=== PATIENT | female | born 1965 | race African-American/Black ===

== ENCOUNTER 2016-11-17 09:59 | Emergency (ER) | payer MEDICARE, OTHER, MEDICAID ==
[2016-11-17 10:08] VITALS: BP 177/113
== END 2016-11-17 11:10 | disposition left against medical advice (07) ==
LOC: ER 09:59
DX: Z53.21 Procedure and treatment not carried out due to patient leaving prior to being seen by health care provider (principal)

== ENCOUNTER → 2019-11-09 | Outpatient (CLI) | payer MEDICARE, MEDICAID ==
--- NOTE | 2019-11-09 13:46 | RADIOLOGY REPORT (SQ) ---
EXAM DESCRIPTION: FOOT BILATERAL 3 VIEWS COMPLETED DATE/TIME: 11/09/2019 1:34 pm REASON FOR STUDY: M79.671 PAIN IN RIGHT FOOT, M79.672 PAIN IN LEFT FOOT M25.572 PAIN IN LEFT ANKLE AND JOINTS OF LEFT FOOT M25.571 PAIN IN RIGHT ANKLE AND JOINTS OF RIGHT FOOT M79.671 PAIN IN RIGHT FOOT COMPARISON: None. NUMBER OF VIEWS: Three views. TECHNIQUE: AP, lateral, and oblique views of both feet were obtained. LIMITATIONS: None. FINDINGS: RIGHT FOOT: MINERALIZATION: Normal. BONES: No fracture or osseous lesion. JOINTS: Osteoarthrosis of the 1st MTP joint. The normal tarsometatarsal alignment is preserved. SOFT TISSUES: No soft tissue swelling or radiopaque foreign body. OTHER: No other finding. LEFT FOOT: MINERALIZATION: Normal. BONES: No fracture or osseous lesion. JOINTS: Osteoarthrosis of the 1st MTP joint. The normal tarsometatarsal alignment is preserved. SOFT TISSUES: No soft tissue swelling or radiopaque foreign body. OTHER: No other finding. IMPRESSION: 1. No acute osseous abnormality of the feet. 2. 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 TECHNICAL DOCUMENTATION: JOB ID: [id number] [employer]- All Rights Reserved Reading location - IP/workstation name: [email or web address]
--- NOTE | 2019-11-09 16:08 | RADIOLOGY REPORT (SQ) ---
EXAM DESCRIPTION: ANKLE BILATERAL 3 VIEWS MIN COMPLETED DATE/TIME: 11/09/2019 12:38 pm REASON FOR STUDY: M25.572 PAIN IN LEFT ANKLE AND JOINTS OF LEFT FOOT, M25.571 PAIN IN RIGHT A M79.60 5 PAIN IN LEFT LEG M25.572 PAIN IN LEFT ANKLE AND JOINTS OF LEFT FOOT M25.571 PAIN IN RIGHT ANKLE AND JOINTS OF RIGHT FOOT COMPARISON: None. NUMBER OF VIEWS: Three views. TECHNIQUE: AP, lateral, and oblique radiographic images acquired of the right and left ankle. LIMITATIONS: None. FINDINGS: MINERALIZATION: Normal. BONES: No acute fracture or dislocation. No worrisome bone lesions. JOINTS: No effusions. SOFT TISSUES: No soft tissue swelling. No foreign body. OTHER: No other significant finding. IMPRESSION: NO RADIOGRAPHIC EVIDENCE OF ACUTE INJURY OF THE RIGHT AND LEFT ANKLES. TECHNICAL DOCUMENTATION: JOB ID: [id number] [employer]- All Rights Reserved Reading location - IP/workstation name: [email or web address]
== END ==
LOC: RAD 12:01
PROVIDERS: ATTEND Internal Medicine
DX: M79.671 Pain in right foot (principal); M79.672 Pain in left foot; M25.572 Pain in left ankle and joints of left foot; M25.571 Pain in right ankle and joints of right foot

== ENCOUNTER → 2019-12-06 | Outpatient (CLI) | payer MEDICARE, MEDICAID ==
--- NOTE | 2019-12-06 10:19 | WOMENS IMAGING REPORT ---
EXAM DESCRIPTION: 3D SCREENING MAMMO BILAT COMPLETED DATE/TIME: 12/06/2019 9:30 am REASON FOR STUDY: Z12.31 ENCOUNTER FOR SCREENING MAMMOGRAM FOR MALIGNANT NEOPLASM OF BREAST Z12.31 ENCNTR SCREEN MAMMOGRAM FOR MALIGNANT NEOPLASM OF [place] COMPARISON: 10/20/2009. EXAM PARAMETERS: Views: Standard craniocaudal and mediolateral oblique views of each breast recorded using digital acquisition and breast tomosynthesis. Read with the assistance of CAD. .[facility] - R2 [place] Guide Version 9.2 LIMITATIONS: None. FINDINGS: No suspicious masses, suspicious calcifications or architectural distortion. No areas of c oncern. IMPRESSION: NEGATIVE MAMMOGRAM. BIRADS 1. BREAST DENSITY: c. The breasts are heterogeneously dense, which may obscure small masses. BIRAD: ASSESSMENT: 1 NEGATIVE RECOMMENDATION: ROUTINE SCREENING COMMENT: The patient has been notified of the results by letter per MQSA requirements. Additional no tification policies are in place for contacting patient with suspicious or incomplete findings. Quality ID #[id number]: The [employer] recommends an annual screening mammogram for women aged 40 years or over. This facility utilizes a reminder system to ensure that all patients receive reminder letters, and/or direct phone calls for appointments. This includes reminders for routine scr eening mammograms, diagnostic mammograms, or other Breast Imaging Interventions when appropriate. Th is patient will be placed in the appropriate reminder system. TECHNICAL DOCUMENTATION: FINDING NUMBER: (1) ASSESSMENT: (1) JOB ID: [id number] [employer]- All Rights Reserved Reading location - IP/workstation name: [email or web address]
== END ==
LOC: WI 08:13
PROVIDERS: ATTEND Internal Medicine
DX: Z12.31 Encounter for screening mammogram for malignant neoplasm of breast (principal)
CPT/HCPCS: 77063; 77067

== ENCOUNTER 2020-01-13 12:10 | Emergency (ER) | payer MEDICAID, MEDICARE ==
[2020-01-13 12:22] VITALS: BP 166/98
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
== END 2020-01-13 12:28 | disposition home or self-care (01) ==
LOC: ER 12:10
DX: I10 Essential (primary) hypertension (principal); J45.909 Unspecified asthma, uncomplicated; Z79.899 Other long term (current) drug therapy
CPT/HCPCS: 99283

== ENCOUNTER 2020-04-02 21:20 | Emergency (ER) | payer MEDICARE ==
[2020-04-02 21:28] VITALS: BP 133/85
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
== END 2020-04-02 23:05 | disposition left against medical advice (07) ==
LOC: ER 21:20
DX: M54.5 Low back pain (principal); R10.9 Unspecified abdominal pain; R31.9 Hematuria, unspecified; R04.2 Hemoptysis; Z53.20 Procedure and treatment not carried out because of patient's decision for unspecified reasons; I10 Essential (primary) hypertension; J45.909 Unspecified asthma, uncomplicated
CPT/HCPCS: 72110; 99281

== ENCOUNTER 2020-06-17 11:20 | Emergency (ER) | payer MEDICARE ==
--- NOTE | 2020-06-17 11:36 | ER Document Report ---
HPI - HPI Time Seen by Provider: 06/17/20 11:29 Notes: 55-year-old female with a history of hypertension and hypothyroidism presents to the emergency room for evaluation of elevated blood pressure this morning. Patient did not take her blood pressure medication this morning which is losartan and carvedilol, she then had a reading of 181/121 and came to the emergency room for high blood pressure. When asked why she did not take her blood pressure medication she said that her mother did not give them to her, but she is not sure why her blood pressure is high. MEDICATIONS: I agree with the patient medications as charted by the RN. ALLERGIES: I agree with the allergies as charted by the RN. PAST MEDICAL HISTORY/PAST SURGICAL HISTORY: Reviewed and agree as charted by RN. SOCIAL HISTORY: Reviewed and agree as charted by RN. FAMILY HISTORY: No significant familial comorbid conditions directly related to patient complaint EXAM: Reviewed vital signs as charted by RN. REVIEW OF SYSTEMS:reviewed vital signs by RN CONSTITUTIONAL : Denies fever, chills, or sweats. Denies recent illness. EENT: Denies eye, ear, throat, or mouth pain or symptoms. Denies nasal or sinus congestion or discharge. Denies throat, tongue, or mouth swelling or difficulty swallowing. CARDIOVASCULAR: Denies chest pain. Denies palpitations or racing or irregular heart beat. Denies ankle edema. RESPIRATORY: Denies cough, cold, or chest congestion. Denies shortness of breath, difficulty breathing, or wheezing. GASTROINTESTINAL: Denies abdominal pain or distention. Denies nausea, vomiting, or diarrhea. Denies blood in vomitus, stools, or per rectum. Denies black, tarry stools. Denies constipation. GENITOURINARY: Denies difficulty urinating, painful urination, burning, frequency, blood in urine, or discharge. FEMALE GENITOURINARY: Denies vaginal bleeding, heavy or abnormal periods, irregular periods. Denies vaginal discharge or odor. MUSCULOSKELETAL: Denies back or neck pain or stiffness. Denies joint pain or swelling. SKIN: Denies rash, lesions or sores. HEMATOLOGIC : Denies easy bruising or bleeding. LYMPHATIC: Denies swollen, enlarged glands. NEUROLOGICAL: Denies confusion or altered mental status. Denies passing out or loss of consciousness. Denies dizziness or lightheadedness. Denies headache. Denies weakness or paralysis or loss of use of either side. Denies problems with gait or speech. Denies sensory loss, numbness, or tingling. Denies sei zures. PSYCHIATRIC: Denies anxiety or stress. Denies depression, suicidal ideation, or homicidal ideation. ALL OTHER SYSTEMS REVIEWED AND NEGATIVE. PHYSICAL EXAMINATION: GENERAL: Well-appearing, well-nourished and in no acute distress. HEAD: Atraumatic, normocephalic. EYES: Pupils equal round and reactive to light, extraocular movements intact, conjunctiva are normal. ENT: Nares patent, oropharynx clear without exudates. Moist mucous membranes. NECK: Normal range of motion, supple without lymphadenopathy LUNGS: Breath sounds clear to auscultation bilaterally and equal. No wheezes rales or rhonchi. HEART: Regular rate and rhythm without murmurs ABDOMEN: Soft, nontender, nondistended abdomen. No guarding, no rebound. No masses appreciated. Female : deferred Musculoskeletal: Normal range of motion, no pitting or edema. No cyanosis. NEUROLOGICAL: Cranial nerves grossly intact. Normal speech, normal gait. Normal sensory, motor exams PSYCH: Normal mood, normal affect. SKIN: Warm, Dry, normal turgor, no rashes or lesions noted. Dictation was performed using [employer] voice recognition software - REPRODUCTIVE Reproductive: DENIES: : Past Medical History - General Information source: Patient - Social History Family History: Reviewed & Not Pertinent - Past Medical History Cardiac Medical History: Reports: Hx Hypertension Pulmonary Medical History: Reports: Hx Asthma Endocrine Medical History: Reports: Hx Hypothyroidism Renal/ Medical History: Reports: Hx Ovarian Cysts Psychiatric Medical History: Reports: Hx Bipolar Disorder, Hx Depression, Hx Schizophrenia Past Surgical History: Reports: Hx Appendectomy, Hx Gynecologic Surgery - Left ovarian cyst, Hx Thyroid Surgery - Immunizations Hx Diphtheria, Pertussis, Tetanus Vaccination: No Vertical Provider Document - CONSTITUTIONAL Agree With Documented VS: Yes Exam Limitations: No Limitations General Appearance: WD/WN - INFECTION CONTROL TRAVEL OUTSIDE OF THE [place] IN LAST 30 DAYS: No Course - Re-evaluation Re-evalutation: 06/17/20 11:35 Patient is hypertensive but did not take her blood pressure medication today. When asked why she did not take her blood pressure medication she states that her mother did not dispense it to her which is the losartan 50 mg and the carvedilol 25 mg tablets that she takes in the morning. Patient came to the emergency room hypertensive without any symptoms. Patient states she is not sure why her blood pressure is elevated. When asked her if she took her blood pressure medication she said no, when asked her if this is why her blood pressure could be elevated she said yes. So we will be giving patient her prescribed blood pressure medication to see if her blood pressure does reduce - Vital Signs Vital signs: Temp Pulse Resp BP Pulse Ox 98.4 F 74 14 181/121 H 100 06/17/20 11:26 06/17/20 11:26 06/17/20 11:26 06/17/20 11:26 06/17/20 11:26 Discharge - Discharge Clinical Impression: Hypertension Condition: Stable Instructions: High Blood Pressure ([facility]) Additional Instructions: Please take your blood pressure medication as prescribed to you in the morning, every morning, as directed to keep your blood pressure stable. Referrals: LATANYA FARNSWORTH MD [Primary Care Provider] - Follow up as needed
--- NOTE | 2020-06-17 13:07 | ER Document Report ---
ED Medical Screen (RME) - General Chief Complaint: High Blood Pressure Stated Complaint: HIGH BLOOD PRESSURE Time Seen by Provider: 06/17/20 11:29 Primary Care Provider: LATANYA FARNSWORTH MD [Primary Care Provider] - Follow up as needed TRAVEL OUTSIDE OF THE [place] IN LAST 30 DAYS: No - HPI Notes: 06/17/20 13:06 55-year-old female presents to the emergency room for evaluation of hypertension. Patient states that she typically takes losartan 50 mg and carvedilol 25 mg tablets in the morning but did not take any this morning. Patient states that her mother typically gives her her blood pressure medication but she did not give it to her this morning. Patient states her blood pressure typically has been higher than usual and she thinks that she may need a blood pressure medication adjustment. Typically her blood pressures in the 130s over 80s with medication. Denies any blurred vision double vision loss of vision, headache, numbness or tingling down bilateral arms or legs or face, chest pain, shortness of breath, dizziness, lightheadedness, etc I have greeted and performed a rapid initial assessment of this patient. A comprehensive ED assessment and evaluation of the patient, analysis of test results and completion of the medical decision making process will be conducted by additional ED providers. PHYSICAL EXAMINATION: GENERAL: Well-appearing, well-nourished and in no acute distress. HEAD: Atraumatic, normocephalic. EYES: Pupils equal round extraocular movements intact, conjunctiva are normal. NECK: Normal range of motion CV: s1, s2 regular LUNGS: No respiratory distress Musculoskeletal: Normal range of motion NEUROLOGICAL: Normal speech, normal gait. SKIN: Warm, Dry, normal turgor, no rashes or lesions noted. - Related Data Allergies/Adverse Reactions: No Known Allergies Allergy (Verified 11/17/16 10:02) Home Medications: Losartan, Carvedilol, Synthroid Past Medical History - Social History Family history: Reviewed & Not Pertinent - Past Medical History Cardiac Medical History: Reports: Hx Hypertension Pulmonary Medical History: Reports: Hx Asthma Endocrine Medical History: Reports: Hx Hypothyroidism Renal/ Medical History: Reports: Hx Ovarian Cysts Psychiatric Medical History: Reports: Hx Bipolar Disorder, Hx Depression, Hx Schizophrenia Past Surgical History: Reports: Hx Appendectomy, Hx Gynecologic Surgery - Left ovarian cyst, Hx Thyroid Surgery - Immunizations Hx Diphtheria, Pertussis, Tetanus Vaccination: No Physical Exam - Vital signs Vitals: Temp Pulse Resp BP Pulse Ox 98.4 F 74 14 181/121 H 100 06/17/20 11:26 06/17/20 11:26 06/17/20 11:26 06/17/20 11:26 06/17/20 11:26 Course - Vital Signs Vital signs: Temp Pulse Resp BP Pulse Ox 98.4 F 74 14 171/100 H 100 06/17/20 11:26 06/17/20 11:26 06/17/20 11:26 06/17/20 12:50 06/17/20 11:26 Doctor's Discharge - Discharge
--- NOTE | 2020-06-17 14:06 | ER Document Report ---
ED General - General Chief Complaint: High Blood Pressure Stated Complaint: HIGH BLOOD PRESSURE Time Seen by Provider: 06/17/20 11:29 Primary Care Provider: LATANYA FARNSWORTH MD [Primary Care Provider] - Follow up as needed Notes: Patient presents with "my blood pressures been up and down." When I asked her what how high it got she said "100 and something." Her mom has her med she is not sure what she is on but denies medication changes. She also denies any symptoms at all including cardiac or neurologic. TRAVEL OUTSIDE OF THE [place] IN LAST 30 DAYS: No - Related Data Allergies/Adverse Reactions: No Known Allergies Allergy (Verified 11/17/16 10:02) Home Medications: Losartan, Carvedilol, Synthroid Past Medical History - General Information source: Patient - Social History Smoking Status: Unknown if Ever Smoked Family History: Reviewed & Not Pertinent - Past Medical History Cardiac Medical History: Reports: Hx Hypertension Pulmonary Medical History: Reports: Hx Asthma Endocrine Medical History: Reports: Hx Hypothyroidism Renal/ Medical History: Reports: Hx Ovarian Cysts Psychiatric Medical History: Reports: Hx Bipolar Disorder, Hx Depression, Hx Schizophrenia Past Surgical History: Reports: Hx Appendectomy, Hx Gynecologic Surgery - Left ovarian cyst, Hx Thyroid Surgery - Immunizations Hx Diphtheria, Pertussis, Tetanus Vaccination: No Review of Systems - Review of Systems Notes: Insert my review Physical Exam - Vital signs Vitals: Temp Pulse Resp BP Pulse Ox 98.4 F 74 14 181/121 H 100 06/17/20 11:26 06/17/20 11:26 06/17/20 11:26 06/17/20 11:26 06/17/20 11:26 Course - Re-evaluation Re-evalutation: 06/17/20 14:45 Asymptomatic hypertension No signs of stroke and hypertensive emergency. Not truly hypertensive at home. Stable for discharge. Titrate meds at primary care. I have discussed with the patient there likely diagnosis, aftercare plan, follow-up plans and my usual and customary return precautions. They verbalized understanding of this. - Vital Signs Vital signs: Temp Pulse Resp BP Pulse Ox 98.4 F 67 18 163/107 H 100 06/17/20 14:13 06/17/20 14:13 06/17/20 14:13 06/17/20 14:13 08/25/20 11:26 Discharge - Discharge Clinical Impression: Asymptomatic hypertension Condition: Good Disposition: HOME, SELF-CARE Referrals: LATANYA FARNSWORTH MD [Primary Care Provider] - Follow up as needed
[2020-06-17 14:14] VITALS: BP 163/107
--- NOTE | 2020-06-18 10:28 | EKG REPORT ---
SEVERITY:- NORMAL ECG - SINUS RHYTHM : Confirmed by: Chana Duong MD 18-Jun-2020 10:27:44
== END 2020-06-17 14:18 | disposition home or self-care (01) ==
LOC: ER 11:20
DX: I10 Essential (primary) hypertension (principal); Z79.899 Other long term (current) drug therapy; J45.909 Unspecified asthma, uncomplicated
CPT/HCPCS: 93005; 93010; 99283